=== PATIENT | female | born 1985 | race Caucasian/White ===

== ENCOUNTER 2022-10-08 00:52 | Inpatient (IN) ==
[2022-10-08] MEDS ORDERED: OXYTOCIN 30 UNITS/500 ML BAG IV PRN ×2 (01:37→04:10)
[2022-10-08] MEDS ORDERED: LIDOCAINE 1% LOCAL 20 ML VIAL INFIL PRN (01:37)
[2022-10-08] MEDS ORDERED: LACTATED RINGER'S 1,000 ML IV PRN (01:37)
--- NOTE | 2022-10-08 01:39 | History & Physical Report ---
Date of Service October 08, 2022 Assessment & Plan (1) Normal labor: Plan admit, expectant management. fetus category one. desires epidural. anticipates . History of Present Illness Chief Complaint: contractions Primary Care Provider: NO PCP Len is a 37yowf with iup at 41 2/7 weeks who presents to labor and delivery with increased contractions. no vb, but ? lof earlier in the day, went to [facility] and thought the fluid was different. Was 2 in the office last. and Delivery Plans AMA *Weekly NST's @ 36wks. Rubella status- equivocal give vaccine Flu shot given 06/13/22 - [facility] Labs: Blood Type O Positive 02/21/22 Antibody Screen NEGATIVE 02/21/22 Hemoglobin 12.5 g/dl (12.0-16.0) 07/11/22 Hematocrit 37.2 % (34.1-44.9) 07/11/22 Mean Corpuscular Volume 85.0 fL (80.0-100.0) 02/21/22 Platelet Count 303 K/uL (130-400) 02/21/22 Rubella IgG Antibody Equivocal (Immune) L 02/21/22 Rapid Plasma Reagin Nonreactive (Nonreactive) 02/21/22 Hepatitis B Surface Antigen. NON-REACTIVE (NON-REACTIVE) 02/21/22 Hepatitis C Antibody (EIA) NON-REACTIVE (NON-REACTIVE) 02/21/22 HIV (1&2) Ag and Ab Confirmation NON-REACTIVE (NON-REACTIVE) 02/21/22 Glucose 1 Hour 50 gm Load 115 mg/dl (70-130) 07/11/22 OB Optional Labs: Chlamydia trachomatis RNA NOT DETECTED (NOT DETECTED) 02/21/22 Neisseria gonorrhoeae RNA NOT DETECTED (NOT DETECTED) 02/21/22 Labs Reviewed: cf/sma-negative--mln cfdna-low risk--mln GBS neg Allergies Allergy/AdvReac Type Severity Reaction Status Date / Time No Known Allergies Allergy Verified 10/01/22 13:38 Home Medications Medication Instructions Recorded Confirmed Type prenat.vits,kay,yxa-wsba-alxee 1 tab PO DAILY 02/14/22 10/08/22 History aspirin 81 mg capsule 81 mg PO DAILY 10/08/22 10/08/22 History Patient History Medical History Uterine anomaly UTERINE FIBROID Surgical History History of laparoscopic cholecystectomy 11/20/2015 S/P wisdom tooth extraction Family History Father Diabetes mellitus, type 2 Mother Thyroid cancer Grandfather (Maternal) S/P triple vessel bypass Heart disease Denies family history of Ovarian cancer Prostate cancer Myocardial infarction Breast cancer Colorectal cancer Social History Smoking Status: Never smoker Second Hand Exposure: No; Hx Alcohol Use: No Hx Substance Use: No Preferred Language: E[place] Communication Ability: Effective Visual Impairment: No Limitations Hearing Ability: Normal Professor Of Biology Required: No Beliefs That Will Affect Care: None marital status: marital status details: Alejandro (40) [phone] Current Living Situation: Spouse Current Living Situation Comment: lives with spouse, daughter, 1 dog, 1 cat, spouse to change litter. 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 Date GA wks Lbr Lgth wt Sex Type del Anes Place Del Prov ? Comment 12/01/19 43 8lb 9oz F Epidu ral [facility] Dr. Mar No [employer] History noncontributory Physical Exam Constitutional: WD/WN, vitals as above Gastrointestinal (Abdomen): soft, gravid, nt Psychiatric: A+Ox3, euthymic affect Genitourinary: cx--/-2, cannot appreciate membranes toco--q2-5min, breathing through pvf==704f with mod variabiity, small accels, no decels Results & Data ([facility]) Vital Signs (Past 12 Hours) Vital Signs Temp Pulse Resp BP 10/08/22 01:12 93 H 138/80 10/08/22 01:05 36.8 C 16 Coding Level of Care Code None Diagnoses Normal labor O80; Z37.9
[2022-10-08] MEDS ORDERED: SODIUM CHLORIDE 0.9% INJ 10 ML VIAL ONE (02:01)
[2022-10-08] MEDS ORDERED: BUPIVACAINE 0.25% 30 ML VIAL ONE (02:01)
[2022-10-08] MEDS ORDERED: LIDOCAINE 2%/EPINEPHRINE 1:200,000 20 ML SDV ONE (02:01)
[2022-10-08] MEDS ORDERED: fentaNYL citrate 100 MCG/2 ML VIAL ONE (02:01)
[2022-10-08] MEDS ORDERED: ePHEDrine sulfate 50 MG/ML AMP ONE (02:01)
[2022-10-08] MEDS ORDERED: fentaNYL 2MCG/ML ROPIVACAINE 1.25MG/ML 100 ML BAG EPI ONE (02:02)
[2022-10-08 02:04] LABS: Hematocrit (blood only) 36.2 % (37.0-47.0); Hemoglobin 12.3 g/dl (12.0-16.0); Mean Corpuscular Hemoglobin 28.5 pg (25.0-34.0); Mean Corpuscular Volume 83.8 fL (80.0-100.0); Mean Platelet Volume 10.6 fL (9.4-12.4); Platelet Count 209 K/uL (130-400); RDW Coefficient of Variation 14.6 % (11.5-14.5); RDW Standard Deviation 43.8 fL (36.4-46.3); Red Blood Count 4.32 M/uL (4.20-5.40); White Blood Count 14.72 K/ul (4.8-10.8)
[2022-10-08] MEDS ORDERED: NALOXONE HCL 1 MG in SODIUM CHLORIDE 0.9% 1000ML 1,000 ML IV PRN (02:16)
[2022-10-08] MEDS ORDERED: NALBUPHINE HCL INJ 10 MG/ML AMP IV PRN (02:16)
[2022-10-08] MEDS ORDERED: NALOXONE HCL 0.4 MG/1 ML VIAL/CARP IV PRN (02:16)
[2022-10-08] MEDS ORDERED: ONDANSETRON INJ 2 MG/ML 2 ML VIAL IV PRN (02:16)
[2022-10-08] MEDS ORDERED: ePHEDrine sulfate 50 MG/ML AMP IV PRN (02:16)
[2022-10-08] MEDS ORDERED: diphenhydrAMINE 50 MG/ML VIAL IV PRN (02:16)
[2022-10-08] MEDS ORDERED: fentaNYL 2MCG/ML ROPIVACAINE 1.25MG/ML 100 ML BAG EPI PRN (02:16)
[2022-10-08] MEDS ORDERED: PROMETHAZINE HCL 6.25 MG in SODIUM CHLORIDE 0.9% 50 ML IV PRN (02:16)
--- NOTE | 2022-10-08 02:16 | Anesthesiology Consultation ---
Date of Service October 08, 2022 Assessment & Plan Chart Review Chart Review: Patient NOT seen in Pre Admission Testing and Acceptable Risk for Labor Epidural Consults Requested none ASA ASA2 Proposed Anesthesia Anesthesia Type: Labor Epidural Risk / Benefits Reviewed With: PT / POA / Parent / Guardian, Accepts Plan and Informed Consent Obtained History Height/Weight Height: 5 ft 10 in Weight: 112.491 kg Allergies Allergy/AdvReac Type Severity Reaction Status Date / Time No Known Allergies Allergy Verified 10/01/22 13:38 Medications Home Medications Medication Instructions Recorded Confirmed Last Taken prenat.vits,kay,qwr-vczv-nilqs 1 tab PO DAILY 02/14/22 10/08/22 10/07/22 aspirin 81 mg capsule 81 mg PO DAILY 10/08/22 10/08/22 10/07/22 Past Medical History Medical History Uterine anomaly UTERINE FIBROID Exercise / Class Metabolic Activity II 4-5 Yardwork/Stairs/Walk up hill Past Family History Family History Father Diabetes mellitus, type 2 Mother Thyroid cancer Grandfather (Maternal) S/P triple vessel bypass Heart disease Denies family history of Ovarian cancer Prostate cancer Myocardial infarction Breast cancer Colorectal cancer Past Surgical History Surgical History History of laparoscopic cholecystectomy 11/20/2015 S/P wisdom tooth extraction Past Anesthesia History No Hx of Anesthesia Complications and No Family Hx of Anesthesia Complications History of PONV No Hx of PONV and No Hx of Motion Sickness Social History Smoking Status: Never smoker Hx Alcohol Use: No Hx Substance Use: No substance use type: does not use Physical Exam Vital Signs Last Vital Signs Temp 36.8 C 10/08/22 01:05 Pulse 93 H 10/08/22 01:12 Resp 16 10/08/22 01:05 BP 138/80 10/08/22 01:12 ENMT Mouth: no dentition abnormality Thyromental Distance: > or= 3.5 Finger Breadths Mallampati Class: II Neck normal visual inspection Respiratory normal respiratory effort Auscultation: lungs clear to auscultation bilaterally Cardiovascular Rate/Rhythm: regular rate and regular rhythm Psychiatric Orientation: alert Testing Laboratory Results 10/08/22 01:52
[2022-10-08] MEDS ORDERED: BENZOCAINE 20% AER SPR 82.5 GM CAN EXT PRN (04:10)
[2022-10-08] MEDS ORDERED: oxyCODONE/ACETAMINOPHEN 5mg/325mg TAB PO PRN (04:10)
[2022-10-08] MEDS ORDERED: DIPHTHERIA/TETANUS/PERTUSSIS 0.5mL SYR/VIAL (Age 7+yrs) IM ONE (04:10)
[2022-10-08] MEDS ORDERED: HYDROCORTISONE ACETATE 25 MG SUPP PR PRN (04:10)
[2022-10-08] MEDS ORDERED: ACETAMINOPHEN 325 MG TAB PO PRN (04:10)
--- NOTE | 2022-10-08 04:14 | Delivery Summary ---
Vaginal Delivery Summary Date of Service October 08, 2022 Vaginal Delivery Summary Pre-operative Diagnosis: at 41 2/7 weeks active labor prom of uncertain duration Post-operative Diagnosis: same Procedure: epidural EBL: 300cc Anesthesia: epidural Procedure: The patient presented to labor and delivery in active labor. I could not feel amniotic membrane and so rom for uncertain duration. She progressed to c/c/+1. The patient pushed for about 30 min to deliver a viable female infant in dop position. The nose and mouth were bulb suctioned on the perineum , loose nuchal cord reduced, and the rest of the infant was then delivered without difficulty. The baby was vigorous. The nose and mouth were again bulb suctioned and the was placed in the maternal abdomen for drying and attention. Cord was clamped and cut at one minute of life. Cord blood and segment obtained. Placenta delivered spontaneous, intact with a three vessel cord. Cervix/sulci/rectum/perineum were intact. Hemostasis obtained with dilute pitocin and fundal massage, and im methergine. Apgars were 8/9. Mother and baby doing well at the end of the delivery. [facility] Vaginal Delivery Charge Delivery Type Details: [facility]
[2022-10-08] MEDS ORDERED: METHYLERGONOVINE MALEATE 0.2 MG/ML AMP IM STA (04:27)
[2022-10-08] MEDS: PRENATAL VITAMIN 1 TAB PO SCH (09:07)
[2022-10-08] MEDS: IBUPROFEN 600 MG TAB PO PRN ×2 (09:07→20:55)
[2022-10-08] MEDS: DOCUSATE SODIUM 100 MG CAP PO SCH ×2 (09:07→20:55)
--- NOTE | 2022-10-08 10:49 | Anesthesia Procedure Note ---
Date of Service October 08, 2022 Anesthesia Post Epidural Note Vital Signs Vital Signs: Temp Pulse Resp BP Pulse Ox 98.4 F 103 H 18 153/69 H 99 10/08/22 05:35 10/08/22 06:27 10/08/22 06:05 10/08/22 06:27 10/08/22 04:09 Notes Mental Status: alert / awake / arousable and participated in evaluation Nausea / Vomiting: adequately controlled Pain: adequately controlled Airway Patency, RR, SpO2: stable & adequate BP & HR: stable & adequate Hydration State: stable & adequate Neuraxial Anesthesia: was administered and sensory block is resolving Anesthetic Complications: no major complications apparent and Pt Satisfied with anesthetic care Epidural: Removed without complications and With tip intact
[2022-10-09] MEDS: IBUPROFEN 600 MG TAB PO PRN (00:43)
--- NOTE | 2022-10-09 05:25 | Obstetrical Progress Note ---
Date of Service <Rosie Enamorado MD - Last Filed: 10/09/22 06:44> October 09, 2022 Assessment & Plan <Rosie Enamorado MD - Last Filed: 10/09/22 06:44> (1) care following vaginal delivery: 37 y/o female presented in labor now PPD1 after . Rh pos, GBS neg. Rubella equivocal - will need vax. Satisfactory post progress. Tolerating PO. Encourage ambulation. <Rozina Gibson MD - Last Filed: 10/09/22 08:02> (1) care following vaginal delivery: Subjective <Rosie Enamorado MD - Last Filed: 10/09/22 06:44> Ambulation: ambulating normally Voiding: no voiding problems Passing Gas:: Yes Diet Tolerance:: regular diet Lochia:: Small Feeding Type:: breast feeding Physical Exam <Rosie Enamorado MD - Last Filed: 10/09/22 06:44> Gen: well appearing female in NAD HEENT: AT NC Resp: CTAB no increased work of breathing CV: RRR no m/r/g clinically well perfused, no calf tenderness : uterus firm, non-tender at the level of the umbilicus Psych: appropriate mood and affect Neuro: alert and oriented Results & Data ([facility]) <Rosie Enamorado MD - Last Filed: 10/09/22 06:44> Vital Signs (Past 12 Hours) Vital Signs Temp Pulse Resp BP Pulse Ox O2 Del Method 10/09/22 04:05 36.5 C 76 18 138/85 98 Room Air 10/09/22 00:45 36.7 C 73 18 135/87 98 Room Air 10/08/22 19:45 36.4 C L 73 18 138/93 98 Room Air Laboratory Results 10/08/22 01:52 <Rozina Gibson MD - Last Filed: 10/09/22 08:02> Co-Signing Physician Notes Resident Physician Supervision Note: I interviewed and examined the patient. Discussed with Dr. Enamorado and agree with findings and plan as documented in the note. Any exceptions or clarifications are listed here: 37 yo PP1 s/p , doing well. Had some elevated bps after delivery, one overnight. Will get labs to confirm ok, bp check in 1 wk Documented By: Rozina Gibson MD Resident Activity Tracking <Rosie Enamorado MD - Last Filed: 10/09/22 06:44> Resident Involvement: Resident Care Provided Care Provided: OB Delivery
[2022-10-09 06:41] LABS: Hematocrit (blood only) 34.2 % (37.0-47.0); Hemoglobin 11.5 g/dl (12.0-16.0)
[2022-10-09] MEDS ORDERED: MEASLES, MUMPS & RUBELLA VIRUS VIAL SQ ONE (07:15)
[2022-10-09] MEDS: PRENATAL VITAMIN 1 TAB PO SCH (08:08)
[2022-10-09] MEDS: DOCUSATE SODIUM 100 MG CAP PO SCH (08:08)
[2022-10-09 08:40] LABS: Hemoglobin 12.6 g/dl (12.0-16.0); Mean Corpuscular Hemoglobin 28.4 pg (25.0-34.0); Mean Corpuscular Hgb Conc 34.1 g/dL (32.0-36.0); Mean Corpuscular Volume 83.5 fL (80.0-100.0); Mean Platelet Volume 10.5 fL (9.4-12.4); Platelet Count 238 K/uL (130-400); RDW Coefficient of Variation 14.9 % (11.5-14.5); RDW Standard Deviation 45.1 fL (36.4-46.3); Red Blood Count 4.43 M/uL (4.20-5.40); White Blood Count 11.92 K/ul (4.8-10.8)
[2022-10-09 09:00] LABS: Albumin Globulin Ratio 1.2 (0.9-2); Albumin Level 3.5 gm/dl (3.4-5.0); BUN Creatinine Ratio 19.4 (10-20); Bilirubin,Total 0.3 mg/dl (0.2-1.0); Calcium 9.1 mg/dl (8.5-10.1); Creatinine Clr Calc Pharmacy 172.1 ml/min; Est GFR (African American) 135.4 ml/min; Est GFR (Non-African American) 116.8 ml/min; Total Protein 6.5 gm/dl (6.0-8.3)
[2022-10-09] MEDS ORDERED: bisacodyL 5 MG TABEC PO SCH (20:00)
[2022-10-10] MEDS ORDERED: bisacodyL 10 MG SUPP PR PRN (04:10)
== END 2022-10-09 13:41 | disposition home or self-care (01) | DRG 807 ==
LOC: OPB 00:52 → 4S1 00:57 → 4E2 06:41